=== PATIENT | female | born 1980 | race African-American/Black ===

== ENCOUNTER 2019-07-31 08:41 | Outpatient (CLI) | payer OTHER ==
--- NOTE | 2019-07-31 09:36 | MMO ---
Bilateral MAMMO Bilat Diag [facility]. CLINICAL HISTORY: Patient is 39 years old and is seen for diagnostic exam. The patient has no family history of breast cancer. The patient has no personal history of cancer. VIEWS: The views performed were: bilateral craniocaudal with tomosynthesis; bilateral mediolateral oblique with tomosynthesis; bilateral mediolateral with tomosynthesis; and bilateral exaggerated craniocaudal. FILMS COMPARED: The present examination has been compared to a prior imaging study performed at [facility] on 07/31/2019. This study has been interpreted with the assistance of computer-aided detection. MAMMOGRAM FINDINGS: There are scattered fibroglandular densities. Benign calcifications are noted bilaterally. US of regions of palpable concern demostrate cysts bilaterally. There are no suspicious masses, suspicious calcifications, or new areas of architectural distortion. IMPRESSION: THERE IS NO MAMMOGRAPHIC EVIDENCE OF MALIGNANCY. A ROUTINE FOLLOW-UP MAMMOGRAM AT AGE 41 IS RECOMMENDED. THE RESULTS OF THIS EXAM WERE SENT TO THE PATIENT. ACR BI-RADS Category 2 - Benign finding MAMMOGRAPHY NOTE: 1. A negative mammogram report should not delay a biopsy if a dominant of clinically suspicious mass is present. 2. Approximately 10% to 15% of breast cancers are not detected by mammography. 3. Adenosis and dense breasts may obscure an underlying neoplasm. Reported by: CALLIE MICHEL MD Electonically Signed: [id number]
--- NOTE | 2019-07-31 13:23 | ULT ---
RIGHT BREAST ULTRASOUND LEFT BREAST ULTRASOUND: HISTORY: Bilateral breast lumps. FINDINGS: RIGHT BREAST: Sonographic evaluation of the region of palpable concern at the 10 o'clock position of the right caio st demonstrates 2 cysts, the larger measuring 12 mm. LEFT BREAST: Sonographic evaluation of the region of palpable concern at the 3 and 4 o'clock positions demonstrate s multiple cysts. The largest has a thin septation and measures 19 mm. Correlation was made with the mammogram of same day. IMPRESSION: BIRADS category 2 - benign findings. Return to age-appropriate screening based on risk factors.
== END 2019-07-31 08:42 | disposition home or self-care (01) ==
LOC: BICMAMMO 08:41
PROVIDERS: ATTEND Family Medicine
DX: N63.20 Unspecified lump in the left breast, unspecified quadrant (principal)
CPT/HCPCS: 77066; G0279